=== PATIENT | male | born 1990 | race Caucasian/White ===

== ENCOUNTER 2017-07-23 19:21 | Emergency (ER) | payer BC ==
[~2017-07-23] VITALS: Ht 190.5 cm; Wt 115.5 kg
[~2017-07-23 19:21] MED LIST: PREDNISONE20 MG PO
[2017-07-23 20:02] LABS: BASOPHIL (%) 0.2 % (0-1); EOSINOPHIL (%) 0.2 % (0-5); HEMATOCRIT 34.5 % (38.0-50.0); HEMOGLOBIN 11.9 G/DL (12.5-16.6); IMMATURE GRANULOCYTE (%) 0.9 % (0.0-0.7); LYMPHOCYTE (%) 15.3 % (15-42); LYMPHOCYTE COUNT 2.6 K/uL (1.0-2.8); MCH 28.7 PG (29.0-34.0); MCHC 34.5 G/DL (30.0-36.0); MCV 83.3 FL (86-99); MONOCYTE (%) 9.4 % (3-12); MONOCYTE COUNT 1.6 K/uL (0-0.8); NEUTROPHIL COUNT 12.8 K/uL (1.8-6.4); PLATELET COUNT 335 K/uL (156-360); RBC DIS.WIDTH-CV 12.3 % (11.8-14.6); RBC DIS.WIDTH-SD 37.6 % (39-53); RED BLOOD COUNT 4.14 M/uL (4.00-5.50); WHITE BLOOD COUNT 17.3 K/uL (4.1-10.2)
[2017-07-23 20:17] LABS: CHLORIDE 104 mEq/L (99-109); POTASSIUM 3.5 mEq/L (3.7-5.4); SODIUM 139 mEq/L (136-147)
[2017-07-23 20:18] LABS: GLUCOSE 100 mg/dL (70-99)
[2017-07-23 20:22] LABS: CREATININE 0.9 mg/dL (0.6-1.3); GFR ESTIMATE (CALCULATED) > 59 mL/min/ (58.99-99999)
[2017-07-23 20:23] LABS: UREA NITROGEN (BUN) 9 mg/dL (9-23)
[2017-07-23] MEDS ORDERED: KEFLEX500 MG PO (20:51)
[2017-07-23] MEDS ORDERED: BACTRIM,SEPT1 TABLET PO (20:51)
[2017-07-23 21:22] VITALS: BP 128/68
== END 2017-07-23 21:24 | disposition home or self-care (01) ==
LOC: EME 19:21
PROC: 3E0234Z Introduction of Serum, Toxoid and Vaccine into Muscle, Percutaneous Approach (ICD-10-PCS; principal; 2017-07-23)
DX: L03.116 Cellulitis of left lower limb (principal); I89.1 Lymphangitis; Z23 Encounter for immunization
CPT/HCPCS: 80048; 83605; 85025; 87040; 99281; 99285

== ENCOUNTER 2017-07-24 10:51 | Emergency (ER) | payer BC ==
[~2017-07-24] VITALS: Ht 190.5 cm; Wt 114.8 kg
[~2017-07-24 10:51] MED LIST changes: +BACTRIM,SEPT1 TABLET PO; +KEFLEX500 MG PO
[2017-07-24 12:38] VITALS: BP 139/78
== END 2017-07-24 12:39 | disposition home or self-care (01) ==
LOC: EME 10:51
DX: L03.116 Cellulitis of left lower limb (principal)
CPT/HCPCS: 99281; 99284; J0696